=== PATIENT | male | born 1930 | race Caucasian/White ===

== ENCOUNTER 2017-06-09 03:40 | Emergency (ER) | payer OTHER ==
[~2017-06-09] VITALS: Ht 175.3 cm; Wt 85.7 kg
[~2017-06-09 03:40] MED LIST: ALLO300T2 PO; APIX5TAB PO; ATOR40TA49 PO; AVOD0.5C PO; LEVO.125 PO; NIFE1TAB85 PO; OMEP20TA PO; RAMI5CAP36 PO; TAMS0.4C67 PO; VITA10002 PO; ZITH250T PO
[2017-06-09 03:49] VITALS: BP 123/61; PULSE 70; RESP 20; TEMP 97.4; O2SAT 97
[2017-06-09] MEDS ORDERED: SODIUM CHLOR 0.9% 1000 ML INJ 1,000 ML IV SCH (04:12)
[2017-06-09] MEDS ORDERED: ONDANSETRON HCL 4 MG/2 ML VIAL IVP ONE ×2 (04:15→05:30)
[2017-06-09] MEDS ORDERED: SODIUM CHLORIDE 0.9% FLUSH 10 ML FLUSH IV FLUSH PRN (04:15)
[2017-06-09] MEDS ORDERED: MORPHINE SULFATE 4 MG/ML INJ IV PUSH ONE ×2 (04:15→05:30)
--- NOTE | 2017-06-09 04:17 | PD ---
HPI Chief Complaint: Abdominal Pain Time Seen by Provider: 04:05 Travel History International Travel<30 days: No Contact w/Intl Traveler<30days: No Traveled to known affect area: No History of Present Illness HPI The patient is an 86-year-old male that ate some tomatoes out of a can at 7 PM this evening and had 11:15 be in getting periumbilical pain. He still has his gallbladder and appendix. He denies any nausea or vomiting or diarrhea. He had a similar episode when he ate vegetables about a year ago but this resolved in a few hours. He states he has not passed gas since this happened. He claims a aching pain of 10 over 10. 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) Social History Alcohol Use: Yes Tobacco Use: No Substance Use: No Allergies-Medications (Allergen,Severity, Reaction): Coded Allergies: No Known Allergies (Verified Adverse Reaction, Unknown, 06/09/17) Reported Meds & Prescriptions Reported Meds & Active Scripts Active Prednisone 20 Mg Tab 20 Mg PO BID 5 Days Proair Hfa 8.5 GM Inh (Albuterol Sulfate) 90 Mcg/Act Aer 2 Puff INH Q4-6H PRN 108 mcg/actuation Reported B-12 (Cyanocobalamin) 1,000 Mcg Subl 1,000 Mcg PO DAILY Multiple Vitamin 1 Tab 1 Tab PO DAILY Dutasteride 0.5 Mg Cap 0.5 Mg PO DAILY Atorvastatin (Atorvastatin Calcium) 40 Mg Tab 40 Mg PO HS Nifedipine 20 Mg Cap 30 Mg PO DAILY Omeprazole 20 Mg Tab 20 Mg PO DAILY Triamterene-Hydrochlorothiazide 37.5-25 Mg Tab 1 Tab PO DAILY Losartan (Losartan Potassium) 25 Mg Tab 25 Mg PO DAILY Metoprolol Tartrate 100 Mg Tab 100 Mg PO DAILY Levothyroxine (Levothyroxine Sodium) 125 Mcg Tab 125 Mcg PO DAILY Tamsulosin (Tamsulosin HCl) 0.4 Mg Cap 0.4 Mg PO HS Allopurinol 100 Mg Tab 100 Mg PO DAILY Eliquis (Apixaban) 5 Mg Tab 5 Mg PO DAILY Review of Systems Except as stated in HPI: all other systems reviewed are Neg Physical Exam Narrative GENERAL: The patient is alert, oriented 3 and slight apparent distress with his abdominal discomfort. His vital signs are normal. SKIN: Focused skin assessment warm/dry. HEAD: Atraumatic. Normocephalic. EYES: Pupils equal and round. No scleral icterus. No injection or drainage. ENT: No nasal bleeding or discharge. Mucous membranes pink and moist. NECK: Trachea midline. No JVD. CARDIOVASCULAR: Regular rate and rhythm. No murmur appreciated. RESPIRATORY: No accessory muscle use. Clear to auscultation. Breath sounds equal bilaterally. GASTROINTESTINAL: Abdomen soft, with minimal discomfort to deep palpation in the periumbilical area, nondistended. Hepatic and splenic margins not palpable. No guarding or rebound is present. MUSCULOSKELETAL: No obvious deformities. No clubbing. No cyanosis. No edema. NEUROLOGICAL: Awake and alert. No obvious cranial nerve deficits. Motor grossly within normal limits. Normal speech. PSYCHIATRIC: Appropriate mood and affect; insight and judgment normal. Data Data Last Documented VS Vital Signs Date Time Temp Pulse Resp B/P (MAP) Pulse Ox O2 Delivery O2 Flow Rate FiO2 06/09/17 06:07 68 16 119/58 (78) 97 Room Air 06/09/17 03:49 97.4 Orders Orders Complete Blood Count With Diff (06/09/17 04:12) Comprehensive Metabolic Panel (06/09/17 04:12) Lipase (06/09/17 04:12) Urinalysis - C+S If Indicated (06/09/17 04:12) Ct Abd/Pel W Iv Contrast(Rout) (06/09/17 04:12) Iv Access Insert/Monitor (06/09/17 04:12) Ecg Monitoring (06/09/17 04:12) Oximetry (06/09/17 04:12) Morphine Inj (Morphine Inj) (06/09/17 04:15) Ondansetron Inj (Zofran Inj) (06/09/17 04:15) Sodium Chlor 0.9% 1000 Ml Inj (Ns 1000 M (06/09/17 04:12) Sodium Chloride 0.9% Flush (Ns Flush) (06/09/17 04:15) Morphine Inj (Morphine Inj) (06/09/17 05:30) Ondansetron Inj (Zofran Inj) (06/09/17 05:30) Iohexol 350 Inj (Omnipaque 350 Inj) (06/09/17 06:21) Labs Laboratory Tests Test 06/09/17 04:30 06/09/17 04:40 Urine Color YELLOW Urine Turbidity CLEAR Urine pH 5.5 Urine Specific [place] 1.016 Urine Protein NEG mg/dL Urine Glucose (UA) NEG mg/dL Urine Ketones NEG mg/dL Urine Occult Blood NEG Urine Nitrite NEG Urine Bilirubin NEG Urine Leukocyte Esterase NEG Urine Squamous Epithelial Cells 0-5 /hpf Urine Hyaline Casts 10-14 /lpf Urine Mucus OCC /lpf Microscopic Urinalysis Comment CULT NOT INDICATED White Blood Count 9.6 TH/MM3 Red Blood Count 4.57 MIL/MM3 Hemoglobin 13.7 GM/DL Hematocrit 41.3 % Mean Corpuscular Volume 90.4 FL Mean Corpuscular Hemoglobin 30.0 PG Mean Corpuscular Hemoglobin Concent 33.1 % Red Cell Distribution Width 15.4 % Platelet Count 160 TH/MM3 Mean Platelet Volume 10.4 FL Neutrophils (%) (Auto) 77.0 % Lymphocytes (%) (Auto) 11.0 % Monocytes (%) (Auto) 9.8 % Eosinophils (%) (Auto) 0.5 % Basophils (%) (Auto) 1.7 % Neutrophils # (Auto) 7.4 TH/MM3 Lymphocytes # (Auto) 1.1 TH/MM3 Monocytes # (Auto) 0.9 TH/MM3 Eosinophils # (Auto) 0.0 TH/MM3 Basophils # (Auto) 0.2 TH/MM3 CBC Comment AUTO DIFF Differential Comment AUTO DIFF CONFIRMED Platelet Estimate NORMAL Platelet Morphology Comment NORMAL Red Cell Morphology Comment NORMAL Blood Urea Nitrogen 22 MG/DL Creatinine 1.40 MG/DL Random Glucose 130 MG/DL Total Protein 6.7 GM/DL Albumin 3.2 GM/DL Calcium Level 8.6 MG/DL Alkaline Phosphatase 72 U/L Aspartate Amino Transf (AST/SGOT) 30 U/L Alanine Aminotransferase (ALT/SGPT) 26 U/L Total Bilirubin 0.4 MG/DL Sodium Level 130 MEQ/L Potassium Level 3.7 MEQ/L Chloride Level 97 MEQ/L Carbon Dioxide Level 25.6 MEQ/L Anion Gap 7 MEQ/L Estimat Glomerular Filtration Rate 48 ML/MIN Lipase 82 U/L MDM Medical Decision Making Medical Screen Exam Complete: Yes Emergency Medical Condition: Yes Medical Record Reviewed: Yes Interpretation(s) The CBC is normal. The urine shows 10-14 hyalin cast but is otherwise normal and culture is not indicated. The complete metabolic profile shows a BUN of 22 , creatinine 1.4, glucose 1:30 with albumin 3.2 and sodium 1:30 but is otherwise normal. The lipase is normal. The CT abdomen pelvis shows mild diverticulosis with no inflammatory change and cholelithiasis with no wall thickening or pericholecystic fluid and diffuse bladder wall thickening and enlarged prostate. Differential Diagnosis Diverticulitis, cholelithiasis with colic, colitis, gastritis, pancreatitis, electrolyte disorder Narrative Course The patient does have gallstones. These may have caused a problem, there is no evidence for acute cholecystitis. The patient is sleeping now and feels better. He will be given prescriptions for Percocet and Zofran. He is to drink increased amounts of liquids to overcome any constipation from the Percocet. The Percocet is to be limited to no more than one every 6 hours. He needs to follow-up with his primary care physician this week. Diagnosis Primary Impression: Cholelithiasis Additional Instructions: Increase clear liquid intake. Follow-up with your primary care physician, hopefully this week. Avoid fatty foods. Med/Other Pt SpecificInfo: Prescription(s) given Scripts Ondansetron (Zofran) 4 Mg Tab 4 MG PO Q6HR Y for NAUSEA OR VOMITING, #30 TAB 0 Refills Prov: Jayson Cabral MD 06/09/17 Oxycodone-Acetaminophen (Percocet) 5-325 mg Tab 1 TAB PO Q6H Y for PAIN, #15 TAB 0 Refills Prov: Jayson Cabral MD 06/09/17 Prednisone (Prednisone) 20 Mg Tab 20 MG PO BID for 5 Days, #10 TAB 0 Refills Prov: Jayson Cabral MD 06/09/17 Albuterol 8.5 GM Inh (Proair Hfa 8.5 GM Inh) 90 Mcg/Act Aer 2 PUFF INH Q4-6H Y for SHORTNESS OF BREATH, #1 INHALER 0 Refills 108 mcg/actuation Prov: Jayson Cabral MD 06/09/17 Disposition: 01 DISCHARGE HOME Condition: Stable Jayson Cabral MD Jun 09, 2017 04:17
[2017-06-09 04:46] VITALS: O2SAT 98
[2017-06-09] MEDS ORDERED: APIX5TAB PO (05:05)
[2017-06-09 05:07] LABS: BILIRUBIN, URINE NEG (NEG); BLOOD, URINE NEG (NEG); GLUCOSE,URINE NEG (NEG); KETONE, URINE NEG (NEG); NITRITE,URINE NEG (NEG); PH, URINE 5.5 (5.0-8.5); URINE LEUKOCYTE ESTERASE NEG (NEG)
[2017-06-09] MEDS ORDERED: LOSA25TA PO (05:10)
[2017-06-09] MEDS ORDERED: CYAN100025 PO (05:10)
[2017-06-09] MEDS ORDERED: LEVO125T4 PO (05:10)
[2017-06-09] MEDS ORDERED: MULTTAB67 PO (05:10)
[2017-06-09] MEDS ORDERED: TRIA37.5 PO (05:10)
[2017-06-09] MEDS ORDERED: METO100T PO (05:10)
[2017-06-09] MEDS ORDERED: DUTA1CAP2 PO (05:10)
[2017-06-09] MEDS ORDERED: ALLO100T PO (05:10)
[2017-06-09] MEDS ORDERED: TAMS0.4C4 PO (05:10)
[2017-06-09] MEDS ORDERED: OMEP20TA93 PO (05:10)
[2017-06-09] MEDS ORDERED: NIFE20 PO (05:10)
[2017-06-09] MEDS ORDERED: ATOR40TA16 PO (05:10)
[2017-06-09 05:18] VITALS: BP 118/63; PULSE 74; RESP 16; O2SAT 98
[2017-06-09 05:19] LABS: CHLORIDE 97 MEQ/L (98-107); SODIUM (NA) 130 MEQ/L (136-145)
[2017-06-09 05:22] LABS: ALBUMIN 3.2 GM/DL (3.4-5.0); CALCIUM 8.6 MG/DL (8.5-10.1)
[2017-06-09 05:23] LABS: BICARBONATE 25.6 MEQ/L (21.0-32.0); BLOOD UREA NITROGEN 22 MG/DL (7-18); GLUCOSE,RANDOM 130 MG/DL (74-106)
[2017-06-09 05:25] LABS: ALT (GPT) 26 U/L (12-78); AST (GOT) 30 U/L (15-37)
[2017-06-09 05:26] LABS: GLOMERULAR FILTRATION RATE 48 ML/MIN (>89)
[2017-06-09 05:27] LABS: TOTAL BILIRUBIN ADULT 0.4 MG/DL (0.2-1.0); TOTAL PROTEIN 6.7 GM/DL (6.4-8.2)
[2017-06-09 05:28] LABS: ALKALINE PHOSPHATASE 72 U/L (45-117)
[2017-06-09 05:29] LABS: AUTOMATED NEUTROPHIL # 7.4 TH/MM3 (1.8-7.7); BASOPHIL # 0.2 TH/MM3 (0-0.2); BASOPHIL % 1.7 % (0.0-2.0); EOSINOPHIL % 0.5 % (0.0-4.0); HEMATOCRIT 41.3 % (39.0-51.0); HEMOGLOBIN 13.7 GM/DL (13.0-17.0); LYMPHOCYTE # 1.1 TH/MM3 (1.0-4.8); MEAN CELL VOLUME 90.4 FL (80.0-100.0); MEAN CORPUSCULAR HGB CONC 33.1 % (32.0-36.0); MEAN PLATELET VOLUME 10.4 FL (7.0-11.0); MONO % 9.8 % (0.0-8.0); MONOCYTE # 0.9 TH/MM3 (0-0.9); PLATELET COUNT 160 TH/MM3 (150-450); RED BLOOD COUNT 4.57 MIL/MM3 (4.50-5.90); RED CELL DISTRIBUTION WIDTH 15.4 % (11.6-17.2); WHITE BLOOD COUNT 9.6 TH/MM3 (4.0-11.0)
[2017-06-09 05:37] LABS: URINE COLOR YELLOW (YELLW/STRAW)
[2017-06-09 05:38] LABS: MUCUS URINE OCC /lpf (OCC)
[2017-06-09 05:39] LABS: SQUAMOUS EPITHELIAL CELL URINE 0-5 /hpf (0-5)
[2017-06-09 06:07] VITALS: BP 119/58; PULSE 68; RESP 16; O2SAT 97
[2017-06-09] MEDS ORDERED: ALBUAER3 INH (06:08)
[2017-06-09] MEDS ORDERED: PRED20 PO (06:08)
[2017-06-09] MEDS ORDERED: IOHEXOL 350 MG/ML 10 ML VIAL (for RAD DIAG) IVCONTRAST ONE (06:21)
--- NOTE | 2017-06-09 06:25 | RADRPT ---
EXAM DATE/TIME: 06/09/2017 05:47 [facility] COMPARISON: No previous studies available for comparison. INDICATIONS : Abdominal pain. IV CONTRAST: 100 cc Omnipaque 350 (iohexol) IV ORAL CONTRAST: No oral contrast ingested. RADIATION DOSE: 14.16 CTDIvol (mGy) MEDICAL HISTORY : Hypertension. Gastroesophageal reflux disease. SURGICAL HISTORY : CABG ENCOUNTER: Initial ACUITY: 1 day PAIN SCALE: 10/10 LOCATION: Bilateral abdomen and pelvis. TECHNIQUE: Volumetric scanning of the abdomen and pelvis was performed. Using automated exposure control and ad justment of the mA and/or kV according to patient size, radiation dose was kept as low as reasonably achievable to obtain optimal diagnostic quality images. DICOM format image data is available electro nically for review and comparison. FINDINGS: LOWER LUNGS: The visualized lower lungs are clear. Status post median sternotomy. There is scarring. LIVER: Homogeneous density without lesion. There is no dilation of the biliary tree. There is a 1 cm calcif ied gallstone in the gallbladder with no definite wall thickening or inflammatory change. SPLEEN: Normal size without lesion. PANCREAS: Within normal limits. KIDNEYS: Normal in size and shape. There is no solid mass, stone or hydronephrosis. There is a simple cyst in the left kidney. ADRENAL GLANDS: Within normal limits. VASCULAR: There is no aortic aneurysm. BOWEL/MESENTERY: The stomach, small bowel, and colon demonstrate no acute abnormality. There is no free intraperitone al air or fluid. Scattered diverticuli are present. There is a normal appendix. ABDOMINAL WALL: Within normal limits. RETROPERITONEUM: There is no lymphadenopathy. BLADDER: There is diffuse bladder wall thickening. REPRODUCTIVE: The prostate gland is moderately enlarged with impression on the bladder base. INGUINAL: There is no lymphadenopathy or hernia. MUSCULOSKELETAL: Within normal limits for patient age. CONCLUSION: 1. Mild diverticulosis with no inflammatory change. 2. Cholelithiasis with no wall thickening or pericholecystic fluid. 3. Diffuse bladder wall thickening and enlarged prostate. Dada Campos MD on June 09, 2017 at 6:20 Board Certified Radiologist. This report was verified electronically.
[2017-06-09] MEDS ORDERED: ZOFR4TAB PO (06:40)
[2017-06-09] MEDS ORDERED: PERC5TAB12 PO (06:40)
[2017-06-09 06:59] VITALS: BP 125/61
== END 2017-06-09 07:01 | disposition home or self-care (01) ==
LOC: PHED 03:40
DX: K80.20 Calculus of gallbladder without cholecystitis without obstruction (principal); I10 Essential (primary) hypertension; E78.00 Pure hypercholesterolemia, unspecified; I25.10 Atherosclerotic heart disease of native coronary artery without angina pectoris; K21.9 Gastro-esophageal reflux disease without esophagitis; Z95.1 Presence of aortocoronary bypass graft
CPT/HCPCS: 74177; 80053; 81001; 83690; 85025; 96361; 96374; 96375; 99285; J2270; J2405; J7030; Q9967